=== PATIENT | female | born 1965 | race Caucasian/White ===

== ENCOUNTER 2016-10-01 11:36 | Day surgery (SDC) | payer OTHER ==
[~2016-10-01] VITALS: Ht 157.5 cm; Wt 47.6 kg
[2016-10-01] VITALS (8 sets, daily range): BP systolic 113–130; BP diastolic 62–83; PULSE 56–76; RESP 16–23; O2SAT 97–100
[~2016-10-01 11:36] MED LIST: ALBU8.5H2 INHALATION; IBUP200C PO; SERT50TA PO
[2016-10-01] MEDS ORDERED: Lidocaine PF 1% 30 mL Inj ONE (11:37)
[2016-10-01] MEDS ORDERED: fentaNYL-PF 50 mCg/mL 2 mL Inj ONE (11:37)
[2016-10-01] MEDS ORDERED: Dexamethasone 4 mg/mL Inj ONE (11:37)
[2016-10-01] MEDS ORDERED: Ondansetron 2 mg/mL 2 mL Inj ONE (11:37)
[2016-10-01] MEDS ORDERED: Propofol 10,000 mCg/mL 20 mL Inj ONE (11:37)
[2016-10-01] MEDS: Lactated Ringer's 1,000 ML IV SCH ×2 (11:55→13:00)
[2016-10-01] MEDS ORDERED: HYDROcodone-APAP 5-325 mg Tablet PO PRN (13:40)
[2016-10-01] MEDS ORDERED: Lactated Ringer's 500 ML IV PRN (13:48)
[2016-10-01] MEDS ORDERED: Lactated Ringer's 1,000 ML IV SCH (13:48)
[2016-10-01] MEDS ORDERED: Lidocaine 1%-Epi 1:100,000 20 mL Inj INFILTRATE ONE (13:48)
--- NOTE | 2016-10-01 13:48 | PCM.HPANE ---
Patient Data Surgeon Admitting Provider: Attending Provider:Hank Johnston DO Primary Care Physician:Saba Cross MD Other Provider:Holden Crocker Anesthesia Reason for Visit Right Radial Styloid Fracture Ht/WT & BMI Height (Feet): 5 Height (Inches): 2 Weight (Kilograms): 47.6 Body Mass Index 19.00 Allergies Coded Allergies: Penicillins (Verified Allergy, Intermediate, Rash, 09/28/16) erythromycin base (Verified Allergy, Intermediate, Rash, 09/28/16) Past Anesthesia History Anesthesia History: Denies:: Anesthesia Reactions, Fam Anesthesia Reaction, Fam Malignant Hypertherm, Malignant Hyperthermia Diabetes History Hx Diabetes?: No MRSA MRSA: No Medications Home Meds Incl Beta Michael: No Reported Medications Ibuprofen 200 Mg [id number] Mg PO QID PRN For Pain Ref 0 09/28/16 Albuterol HFA (Proair HFA)8.5 Gm Hfa.aer.ad2 Puffs INHALATION Q4H #1 INHALER 09/28/16 Sertraline HCl (Zoloft)50 Mg [id number] Mg PO DAILY 30 Days Ref 0 08/18/16 History History of ENT Problems?: No HEENT History: Denies:: Cataracts Glaucoma Hearing Problem Denture Type: None Teeth Condition: Within Normal Limits Hx of Heart Problems?: No Cardiovascular History: Denies:: Abdominal Aortic Aneurism Atrial Fibrillation Cardiac Surgery Congestive Heart Failure Coronary Artery Disease Heart Murmur Hypertension Irregular Heartbeat Peripheral Vascular Rheumatic Fever Thrombophlebitis Valvular Heart Disease Hx of Respiratory Problem?: Yes Respiratory History: Positive for:: Asthma (triggered by grass allergins) Pneumonia (as child) Use of Inhalers / NEBS (Albuterol inhaler) Denies:: COPD Chest Surgery Cough Emphysema Hemoptysis Pulmonary Embolism Tuberculosis Use of C-PAP Machine Hx Neurologic Problems?: No Hx of GI Problems?: No Hx of Problems?: No Female Hx: Positive for:: Problems with Breasts? Skin History: Positive for:: History Skin Disorders? (Eczema rt knee) Denies:: Pressure Ulcers Hx Musculoskeletal Problems?: Yes Musculoskeletal History: Positive for:: Musculoskeletal Trauma (dog bite) Denies:: Back Injury Degenerative Joint Fibromyalgia Joint Replacement Myasthenia Gravis Osteoarthritis Rheumatoid Arthritis Systemic Lupus Hx of Psycho/Social Problems?: Yes Psycho Social History: Positive for:: Hx Depression Denies:: Anxiety Bipolar Disorder Suicide Attempt Hx Surgeries?: Yes (lt hand dog bite nov 2015) Other History: Denies:: Cancer Endocrine Disease Hospitalization Thyroid Disease History Blood Transfusions: Positive for:: Accept Blood Products? Denies:: Blood Transfusions Hx Diabetes: No Hx Alcohol Use: YesAlcoholic Drinks Per Day: glass or two of wine 2-3 times a weekHx Substance Use: No Stop/Bang S-Snoring: Do You Snore Loudly: No T-Tired: feel tired, fatigued: No O-Obsered: Observed not breath: No P-Blood Pressure: treated: No B- Body Mass Index > 35 kg/m2: No A- Age over 50: Yes N- Neck Large Circumference: No G- Gender Male: No DENYS Total Score: 1 DENYS Risk Assessment: Low Risk, <3 Yes Risk Assessment Category Category 1A: Patient has history of documented sleep apnea, and HAS NOT received any narcotic, sedative or anesthesia administration during this stay. Category 1B: Patient has history of documented sleep apnea, and HAS received any narcotic , sedative or anesthesia administration during this stay Category 2: Patient has SUSPECTED Obstructive Sleep Apnea, and HAS received any narcotic , sedative or anesthesia administration during this stay. Category 3: Patient has SUSPECTED Obstructive Sleep Apnea and HAS NOT received narcotic, sedative or anesthesia administration during this stay. Category 4: Outpatient in Procedural Areas with known sleep apnea or who screen positive for High Risk via the STOP/BANG questionnaire. Exam Exam Vital Signs Vital Signs Date Time Temp Pulse Resp B/P Pulse Ox O2 Delivery O2 Flow Rate FiO2 10/01/16 11:54 36.4 67 16 127/83 100 Room Air General Appearance: Alert HEENT/AIRWAY: MP 2, Neck Movement (from, 3 fb) Lungs: Clear to Auscultation Heart: Regular Rate/Rhythm Meds/Labs/Diagnostics Admission Meds Current Medications Lactated Ringer's (Lr) 1,000 ml @ 120 mls/hr Q8H20M IV Last administered on t 11:55; Start 10/01/16 at 05:00; Stop 10/01/16 at 13:19 Plan Impression Patient chart reviewed, patient interviewed and anesthestic plan with risks, benefits, and alternatives discussed, and informed consent obtained. NPO per Anesth. Guidelines: Yes ASA Physical Status: ASA1 Normal Healthy Anesthetic Plan: GA Bene/Risks/Altern/Consents: Yes HP Complete Prior to Induction: Yes James Welch MD Oct 01, 2016 12:05
[2016-10-01] MEDS ORDERED: HYDROmorphone 1 mg/mL Inj IVPUSH PRN (13:50)
[2016-10-01] MEDS ORDERED: MetoCLOpramide 5 mg/mL 2 mL Inj IVPUSH PRN (13:50)
[2016-10-01] MEDS ORDERED: Ondansetron 2 mg/mL 2 mL Inj IVPUSH PRN (13:50)
[2016-10-01] MEDS ORDERED: fentaNYL-PF 50 mCg/mL 2 mL Inj IVPUSH PRN (13:50)
[2016-10-01] MEDS ORDERED: Phenylephrine 10,000 mCg/mL Inj IVPUSH PRN (13:50)
[2016-10-01] MEDS ORDERED: Dexamethasone 4 mg/mL Inj IVPUSH PRN (13:50)
[2016-10-01] MEDS ORDERED: EPHEDrine Sulfate 50 mg/mL Inj IVPUSH PRN (13:50)
--- NOTE | 2016-10-01 15:23 | PCM.ANEP1 ---
Post Anesthesia PACU Phase 1 Assessment Vital Signs Vital Signs Date Time Temp Pulse Resp B/P Pulse Ox O2 Delivery O2 Flow Rate FiO2 10/01/16 15:19 56 16 115/63 100 Room Air 10/01/16 15:00 67 16 113/68 100 Room Air 10/01/16 14:48 74 16 125/62 98 Room Air 10/01/16 14:40 76 17 125/64 98 Room Air 10/01/16 14:37 74 16 130/71 97 Room Air 10/01/16 14:30 72 17 123/70 100 Nasal Cannula 3 10/01/16 14:25 36.5 75 23 120/69 100 Nasal Cannula 3 10/01/16 11:54 36.4 67 16 127/83 100 Room Air Anesthetic Administered: GA Level of Alertness: Awake, talking SPENCE's with Equal Strength: Yes Pain: No Nausea or Vomiting: No CV Function & Hydration Stable: Yes Airway Device: Oxygen Delivery: Nasal Cannula Lungs: Clear to Auscultation Dermatome Level: Full Sensation PACU Phase 2 Assessment Complications: No Follow up Care: N/A Patient Instructions Provided: N/A James Welch MD Oct 01, 2016 15:23
--- NOTE | 2016-10-02 15:15 | OP ---
[address] [address] OPERATIVE REPORT PATIENT: GÓMEZ BE : 1965 MR#: [id number] ADMIT: 10/01/2016 JOB ID: [id number] DATE OF SURGERY: 10/01/2016 SURGEON: Hank Johnston DO PREOPERATIVE DIAGNOSIS(ES): Right radial styloid malunion. POSTOPERATIVE DIAGNOSIS(ES): Right radial styloid malunion. PROCEDURE: Right radial styloidectomy. ANESTHESIA: General. BRIEF HISTORY: Becky is a pleasant, 51-year-old female that fell onto an outstretched right hand sustaining a radial styloid tip fracture. She was treated conservatively with casting without any residual healing to the fracture fragment. A bone stimulator was also utilized. She had some healing but in a malunited position and continued to have pain despite conservative measures to the radial styloid fragment. I discussed with the patient the risks, benefits, and indications to proceed with a right radial styloidectomy. She understood the risks include, but not limited to, neurovascular injury, tendon injury, infection, failure of fixation, stiffness, persistent pain, all of which may require further intervention. Patient had all questions answered. Consent was signed and placed in the chart. PROCEDURE IN DETAIL: The patient was brought to the operative suite and placed supine on the operating table. Surgical time-out performed. Everyone was in agreement. After appropriate anesthesia was obtained, the right upper arm tourniquet was applied. The right upper extremity prepped and draped in a sterile fashion. The right upper extremity was exsanguinated, tourniquet inflated to 250 mmHg. A curvilinear incision was made centered at the radial styloid. Dissection was carried down to the extensor retinaculum. The dorsal radial sensory nerve was identified and well protected. Dissection was carried down between the first and second dorsal compartments. The periosteum was then elevated and the fracture fragment identified. A radial styloidectomy was then performed with an osteotome perpendicular to the joint surface. Care was taken to remove only 3 mm of the radial styloid which was enough to remove the fracture fragment. A rasp was then used to smooth out the styloid resection. Copious irrigation was then performed. Final radiographs were obtained to ensure that the fragment and styloidectomy was appropriately performed. The periosteum overlying the radial styloid was then closed with 3-0 Vicryl followed by 4-0 Monocryl for the skin which was also reinforced with Steri-Strips. The patient was then placed in a well-padded, well-molded thumb spica splint. ESTIMATED BLOOD LOSS: Less than 1 cc. COMPLICATIONS: None. DISPOSITION: The patient tolerated the procedure well. Anesthesia was reversed. The patient was transferred to PACU for recovery. POSTOPERATIVE PLAN: The patient will follow up in the office in two weeks to remove the patient's sutures and splints at that time and transition her into a wrist brace for two additional weeks, but she will be able to start initiating range of motion at that time.
== END 2016-10-01 23:59 | disposition home or self-care (01) ==
LOC: SAS 11:36
PROVIDERS: ATTEND Orthopaedic Surgery
DX: S52.511K Displaced fracture of right radial styloid process, subsequent encounter for closed fracture with nonunion (principal); J45.909 Unspecified asthma, uncomplicated; F32.9 Major depressive disorder, single episode, unspecified; W18.30XA Fall on same level, unspecified, initial encounter; Y93.9 Activity, unspecified; Y92.9 Unspecified place or not applicable; Y99.9 Unspecified external cause status; Z79.899 Other long term (current) drug therapy
CPT/HCPCS: 25230; 76000; J1100; J2405; J2704; J3010; J7120